=== PATIENT | female | born 2000 | race Caucasian/White ===

== ENCOUNTER 2021-12-18 07:09 | Emergency (ER) | payer BC, MEDICAID ==
[~2021-12-18] VITALS: Ht 167.6 cm; Wt 56.7 kg
--- NOTE | 2021-12-18 07:27 | NUR ---
BIBS. BURNING UPON URINATION. COMPLETED ATB AND DIFLUCAN TX WITHOUT RELIEF
[2021-12-18] MEDS ORDERED: CIPR-262 PO (07:42)
--- NOTE | 2021-12-18 08:00 | NUR ---
Patient discharged to home in stable condition. Written and verbal after care instructions given. Patient verbalizes understanding of instruction.
[2021-12-18 08:01] VITALS: BP 108/81
[2021-12-18 08:02] LABS: BILIRUBIN,URINE NEGATIVE (NEGATIVE); COLOR,URINE ORANGE (YELLOW); LEUKOCYTE ESTERASE ,URINE MODERATE (NEGATIVE); NITRITE, URINE POSITIVE (NEGATIVE); PROTEIN,URINE 100 mg/dl (NEGATIVE); UGLUCOSE 250 MG/DL mg/dL (NEGATIVE)
[2021-12-18 08:21] LABS: BACTERIA,URINE Few /HPF (None Seen); SQUAMOUS EPITHELIAL CELL,UR Few /HPF (None Seen); WBC,URINE 21-50 /HPF (0-3)
== END 2021-12-18 08:01 | disposition home or self-care (01) ==
LOC: ER 07:13
DX: N30.90 Cystitis, unspecified without hematuria (principal); F17.200 Nicotine dependence, unspecified, uncomplicated; Z87.440 Personal history of urinary (tract) infections; Z60.2 Problems related to living alone; Z79.899 Other long term (current) drug therapy
CPT/HCPCS: 81001; 84703-TC; 87086-TC